=== PATIENT | male | born 1960 | race Two or more races ===

== ENCOUNTER 2021-10-15 15:16 | Emergency (ER) | payer MEDICAID, OTHER ==
[~2021-10-15] VITALS: Ht 175.3 cm; Wt 84.8 kg
[2021-10-15 15:17] VITALS: BP 138/95
[2021-10-15] MEDS ORDERED: IBUP800T27 PO (17:54)
[2021-10-15] MEDS ORDERED: METH750T22 PO (17:54)
[2021-10-15] MEDS ORDERED: IBUPROFEN 800 MG TAB PO ONE (18:00)
== END 2021-10-15 18:05 | disposition home or self-care (01) ==
LOC: ER 15:16
DX: S16.1XXA Strain of muscle, fascia and tendon at neck level, initial encounter (principal); V49.9XXA Car occupant (driver) (passenger) injured in unspecified traffic accident, initial encounter; Y93.89 Activity, other specified; Y92.410 Unspecified street and highway as the place of occurrence of the external cause; Y99.8 Other external cause status
CPT/HCPCS: 72040